=== PATIENT | male | born 1975 | race Hispanic/Latino ===

== ENCOUNTER 2023-08-02 14:22 | Inpatient (IN) | payer OTHER, SELFPAY ==
[2023-08-02 15:52] LABS: #Basophils 0.1 thou/uL (0.0-0.2); #Eosinphils 0.1 thou/uL (0.0-0.7); #Monocytes 0.7 thou/uL (0.11-0.59); #Neutrophils 5.9 thou/uL (1.40-6.50); %Basophils 1.1 % (0.0-1.0); %Eosinophils 0.7 % (0.0-10.0); %Lymphocytes 24.3 % (21.0-51.0); %Monocytes 7.3 % (0.0-10.0); %Neutrophils 61.7 % (42.0-75.0); Hematocrit 34.1 % (42.0-52.0); Hemoglobin 11.4 g/dL (14.0-18.0); Mean Corpuscular HGB CONC 33.4 g/dL (32.0-36.0); Mean Corpuscular Hemoglobin 34.9 pg (27.0-31.0); Mean Corpuscular Volume 104.3 fl (78.0-98.0); Mean Platelet Volume 10.9 fL (7.4-10.4); Platelet Count 508 10x3/uL (130-400); RBC Distribution Width 21.3 % (11.5-14.5); Red Blood Cell (RBC) Count 3.27 mill/uL (4.70-6.10); White Blood Cell (WBC) Count 9.6 10x3/uL (4.8-10.8)
[2023-08-02 16:32] LABS: ALT (SGPT) 151 U/L (8-55); AST (SGOT) 303 U/L (5-34); Albumin 3.4 g/dL (3.5-5.0); Alkaline Phosphatase 236 U/L (40-110); Anion Gap 14 mmol/L (10-20); BUN (Urea Nitrogen) 8 mg/dL (8.9-20.6); Bilirubin, Total 7.8 mg/dL (0.2-1.2); Calc. Creatinine Clearance 0 mL/min (70-130); Calcium 8.9 mg/dL (7.8-10.44); Carbon Dioxide 21 mmol/L (22-29); Chloride 105 mmol/L (98-107); Estimated GFR 114; Globulin 3.9 g/dL (2.4-3.5); Glucose 104 mg/dL (70-105); Potassium 3.9 mmol/L (3.5-5.1); Protein, Total 7.3 g/dL (6.0-8.3); Sodium 136 mmol/L (136-145)
[2023-08-02 16:36] LABS: HBCM Index 0.09 S/CO (0-0.79); HBSAg Index 0.28 S/CO (0-0.99); Hep A IgM AB Non-Reactive S/CO (NonReactive); Hep A IgM S/CO 0.21 S/CO (0-0.79); Hep B Surf Ag Non-Reactive S/CO (NonReactive); Hep C IgG Ab Non-Reactive S/CO (NonReactive); Hep C Index 0.13 S/CO (0-0.79); Hepatitis B Core IgM Abs Non-Reactive S/CO (NonReactive)
[2023-08-02] MEDS ORDERED: Ondansetron ODT 4 MG TAB PO PRN (19:17)
[2023-08-02] MEDS ORDERED: Ondansetron PF 4 MG/2 ML Vial IVP PRN (19:17)
[2023-08-02] MEDS ORDERED: Lorazepam 2 MG/ML VIAL IM PRN (19:29)
[2023-08-02] MEDS ORDERED: Lorazepam 1 MG TAB PO PRN (19:29)
[2023-08-02 20:36] LABS: Vitamin B12 779 pg/mL (211-911)
[2023-08-02 20:42] LABS: HIV (1/2) Antibody/Antigen Non-Reactive (NonReactive); HIV 1/2 INDEX 0.08 S/CO (<1.00)
[2023-08-02 20:43] LABS: Hemoglobin A1c 4.9 % (4.0-6.0)
[2023-08-02] MEDS: Thiamine HCl 200 MG/2 ML VIAL SLOW IVP SCH (22:23)
[2023-08-03 00:25] LABS: Amphetamine Not Detected (NotDetected); Barbiturates Screen Not Detected (NotDetected); Benzodiazepine Screen Not Detected (NotDetected); Cocaine Metabolite Screen Not Detected (NotDetected); Methadone Not Detected (NotDetected); Methamphetamine Not Detected (NotDetected); Opiate Screen Not Detected (NotDetected); Oxycodone Screen Not Detected (NotDetected); Phencyclidine (PCP) Not Detected (NotDetected); THC/Cannabinoid Screen Not Detected (NotDetected); Tricyclic Screen Not Detected (NotDetected)
[2023-08-03] MEDS: Melatonin 3 MG TAB PO SCH ×2 (00:37→21:55)
[2023-08-03 00:41] LABS: Acetaminophen Less than 10 mcg/mL (10.0-30.0); Alcohol Less than 10.0 mg/dL (Less than 10); Salicylate Less than 8.0 mg/dL (15.0-30.0)
[2023-08-03 01:08] LABS: Alcohol Less than 10.0 mg/dL (Less than 10); Bilirubin, Direct 6.5 mg/dL (0.1-0.3); Magnesium 2.6 mg/dL (1.6-2.6)
[2023-08-03 02:04] LABS: Cardiac Risk 36.8 (Less than 4.5)
[2023-08-03 05:28] LABS: ALT (SGPT) 140 U/L (8-55); AST (SGOT) 277 U/L (5-34); Alkaline Phosphatase 180 U/L (40-110); Anion Gap 11 mmol/L (10-20); BUN (Urea Nitrogen) 6 mg/dL (8.9-20.6); Bilirubin, Total 7.2 mg/dL (0.2-1.2); Calc. Creatinine Clearance 133 mL/min (70-130); Calcium 8.8 mg/dL (7.8-10.44); Carbon Dioxide 26 mmol/L (22-29); Chloride 104 mmol/L (98-107); Estimated GFR 115; Globulin 3.4 g/dL (2.4-3.5); Glucose 98 mg/dL (70-105); Potassium 3.2 mmol/L (3.5-5.1); Protein, Total 6.4 g/dL (6.0-8.3); Sodium 138 mmol/L (136-145)
[2023-08-03] MEDS: Potassium Chloride 20 MEQ TAB PO SCH ×2 (06:25→09:03)
[2023-08-03] MEDS ORDERED: FLU VACC QS2023-24(6MOS UP)/PF 60 MCG/0.5 ML SYRINGE IM ONE (09:00)
[2023-08-03] MEDS: Multivit, Therapeutic 1 TAB PO SCH (09:03)
[2023-08-03] MEDS: Folic Acid 1 MG TAB PO SCH (09:03)
[2023-08-03] MEDS: Enoxaparin 40 MG (0.4 mL) SYRINGE SC SCH (09:04)
[2023-08-03 09:25] LABS: #Basophils 0.1 thou/uL (0.0-0.2); #Eosinphils 0.1 thou/uL (0.0-0.7); #Monocytes 0.6 thou/uL (0.11-0.59); %Basophils 1.1 % (0.0-1.0); %Eosinophils 0.7 % (0.0-10.0); %Lymphocytes 26.7 % (21.0-51.0); %Monocytes 7.6 % (0.0-10.0); %Neutrophils 60.8 % (42.0-75.0); Hematocrit 32.9 % (42.0-52.0); Hemoglobin 10.5 g/dL (14.0-18.0); Mean Corpuscular HGB CONC 31.9 g/dL (32.0-36.0); Mean Corpuscular Hemoglobin 34.8 pg (27.0-31.0); Mean Platelet Volume 11.6 fL (7.4-10.4); Platelet Count 464 10x3/uL (130-400); RBC Distribution Width 21.4 % (11.5-14.5); Red Blood Cell (RBC) Count 3.02 mill/uL (4.70-6.10); White Blood Cell (WBC) Count 8.3 10x3/uL (4.8-10.8)
[2023-08-03 09:35] LABS: Mean Corpuscular Volume 108.9 fl (78.0-98.0)
[2023-08-03 10:54] LABS: Syphilis Antibody Nonreactive (Nonreactive); Syphilis Antibody Index 0.08 S/CO (<1.00 Non-Reactive)
[2023-08-03] MEDS: Ibuprofen 600 MG TAB PO PRN (11:45)
[2023-08-03 13:04] LABS: Prothrombin Time 13.4 sec (12.0-14.7)
[2023-08-03 19:13] LABS: Iron 68 ug/dL (65-175); Iron Binding Capacity, Total 228 mcg/dL (261-462)
[2023-08-03] MEDS ORDERED: Lorazepam 1 MG TAB PO PRN (19:29)
[2023-08-03] MEDS: diphenhydrAMINE 30 GM TUBE TOP PRN (22:49)
[2023-08-04 06:17] LABS: #Basophils 0.1 thou/uL (0.0-0.2); #Eosinphils 0.1 thou/uL (0.0-0.7); #Monocytes 0.6 thou/uL (0.11-0.59); #Neutrophils 5.2 thou/uL (1.40-6.50); %Basophils 1.4 % (0.0-1.0); %Eosinophils 1.2 % (0.0-10.0); %Lymphocytes 24.9 % (21.0-51.0); %Monocytes 6.9 % (0.0-10.0); Hematocrit 35.5 % (42.0-52.0); Hemoglobin 11.6 g/dL (14.0-18.0); Mean Corpuscular HGB CONC 32.7 g/dL (32.0-36.0); Mean Corpuscular Volume 104.1 fl (78.0-98.0); Mean Platelet Volume 10.8 fL (7.4-10.4); Platelet Count 450 10x3/uL (130-400); RBC Distribution Width 20.4 % (11.5-14.5); Red Blood Cell (RBC) Count 3.41 mill/uL (4.70-6.10); White Blood Cell (WBC) Count 8.4 10x3/uL (4.8-10.8)
[2023-08-04 06:44] LABS: ALT (SGPT) 157 U/L (8-55); AST (SGOT) 287 U/L (5-34); Albumin 3.2 g/dL (3.5-5.0); Alkaline Phosphatase 180 U/L (40-110); Anion Gap 13 mmol/L (10-20); BUN (Urea Nitrogen) 9 mg/dL (8.9-20.6); Bilirubin, Total 6.7 mg/dL (0.2-1.2); Calc. Creatinine Clearance 121 mL/min (70-130); Calcium 9.4 mg/dL (7.8-10.44); Carbon Dioxide 24 mmol/L (22-29); Chloride 105 mmol/L (98-107); Estimated GFR 111; Globulin 3.8 g/dL (2.4-3.5); Glucose 112 mg/dL (70-105); Potassium 4.2 mmol/L (3.5-5.1); Sodium 138 mmol/L (136-145)
[2023-08-04 09:29] VITALS: BP 110/74; TEMP 97.7
[2023-08-04] MEDS ORDERED: Lorazepam 1 MG TAB PO PRN (19:29)
[2023-08-05 11:57] LABS: ANA Symphony (Qualitative) Negative (Negative); ANA Symphony (Quantitative) 0.2 Ratio (< 0.7 Negative); dsDNA IgG Antibody 0.9 IU/mL (<10 Negative)
[2023-08-05 12:53] LABS: EliA Vaculitis New Method **** NEW METHOD ****; Mitochondrial Ab 0.8 U/mL (<4 Negative)
[2023-08-05] MEDS ORDERED: Lorazepam 0.5 MG TAB PO PRN (19:29)
[2023-08-05] MEDS ORDERED: Thiamine 100 MG TAB PO SCH (19:30)
== END 2023-08-04 14:46 | disposition home or self-care (01) | DRG 433 ==
LOC: ERS 14:22 → MSONC 18:12
PROVIDERS: ADMIT Family Medicine; ATTEND Family Medicine
DX: K70.10 Alcoholic hepatitis without ascites (principal); D68.69 Other thrombophilia; G47.00 Insomnia, unspecified; R74.01 Elevation of levels of liver transaminase levels; D53.9 Nutritional anemia, unspecified; E80.6 Other disorders of bilirubin metabolism; K76.0 Fatty (change of) liver, not elsewhere classified; Z79.899 Other long term (current) drug therapy
CPT/HCPCS: 36415; 74170; 76705; 80053; 80061; 80074; 80306; 80307; 82103; 82105; 82248; 82378; 82390; 82607; 82728; 82977; 83010; 83036; 83516; 83540; 83550; 83615; 83735; 84100; 85025; 85046; 85610; 86015; 86038; 86225; 86644; 86780; 87389; 93005; J1650; J3411